=== PATIENT | female | born 1995 | race Caucasian/White ===

== ENCOUNTER → 2018-01-24 | Outpatient (CLI) | payer BC ==
[~2018-01-24] VITALS: Ht 160 cm; Wt 88.6 kg
[2018-01-24 18:17] VITALS: BP 140/91
[2018-01-24 18:48] LABS: ALBUMIN 4.1 g/dL (3.5-5.0); CALCIUM 8.8 mg/dL (8.4-10.2); POTASSIUM 4.4 mmol/L (3.6-5.0); TOTAL BILIRUBIN 0.6 mg/dL (0.2-1.3); TOTAL PROTEIN 7.4 g/dL (6.3-8.2)
[2018-01-24 19:17] LABS: HEMATOCRIT 45.7 % (37.0-47.0); HEMOGLOBIN 15.7 g/dL (12.5-16.0); MEAN PLATELET VOLUME 10.9 fl (7.4-10.4); RED BLOOD COUNT 5.38 M/mm3 (4.10-5.30); RED CELL DISTRIBUTION WIDTH 12.6 % (11.5-14.5); WHITE BLOOD COUNT 9.1 K/mm3 (4.8-10.8)
[2018-01-24 19:51] LABS: PH-URINE 6.5 (5.0 - 8.0); URINE APPEARANCE CLEAR; URINE BILIRUBIN NEGATIVE (NEGATIVE); URINE BLOOD TRACE (NEGATIVE); URINE COLOR YELLOW; URINE GLUCOSE NEGATIVE (NEGATIVE); URINE KETONE NEGATIVE (NEGATIVE); URINE LEUKOCYTE ESTERASE NEGATIVE (NEGATIVE); URINE NITRATE NEGATIVE (NEGATIVE); URINE PROTEIN(semi-quant) NEGATIVE (NEGATIVE); URINE UROBILINOGEN NORMAL (NORMAL); URINE WBC 0-1 /hpf (0-3)
== END ==
LOC: AMSURD 17:44
PROVIDERS: Family Medicine
DX: I10 Essential (primary) hypertension (principal)

== ENCOUNTER 2018-08-14 20:52 | Emergency (ER) | payer BC ==
[~2018-08-14] VITALS: Ht 162.6 cm; Wt 86.8 kg
[2018-08-14 22:16] VITALS: BP 148/94
== END 2018-08-14 22:16 | disposition home or self-care (01) ==
LOC: ED 20:52
DX: S93.402A Sprain of unspecified ligament of left ankle, initial encounter (principal); I10 Essential (primary) hypertension; Z90.89 Acquired absence of other organs; X50.1XXA Overexertion from prolonged static or awkward postures, initial encounter; Y92.830 Public park as the place of occurrence of the external cause

== ENCOUNTER → 2022-12-16 | Outpatient (CLI) | payer SELFPAY ==
[2022-12-16 09:39] LABS: HEMATOCRIT 47.4 % (37.0-47.0); HEMOGLOBIN 15.8 g/dL (12.5-16.0); MEAN PLATELET VOLUME 10.5 fl (7.4-10.4); RED BLOOD COUNT 5.46 M/mm3 (4.10-5.30); RED CELL DISTRIBUTION WIDTH 12.8 % (11.5-14.5); WHITE BLOOD COUNT 10.2 K/mm3 (4.8-10.8)
[2022-12-16 09:42] LABS: CALCIUM 9.2 mg/dL (8.3-10.5)
[2022-12-16 09:43] LABS: TOTAL PROTEIN 7.5 g/dL (6.4-8.3)
[2022-12-16 09:45] LABS: TOTAL BILIRUBIN 0.7 mg/dL (0.2-1.2)
== END ==
LOC: LAB 09:03
PROVIDERS: Family Medicine
DX: I10 Essential (primary) hypertension (principal); E66.9 Obesity, unspecified; N91.1 Secondary amenorrhea

== ENCOUNTER → 2023-12-27 | Outpatient (CLI) | payer BC ==
[~2023-12-27] MED LIST: METOPROLOL SUCC25 M1 PO; PREDNISONE20 M1 PO; SEPTRA DS 8001 TAB PO
[2023-12-27 16:26] LABS: HEMATOCRIT 45.9 % (37.0-47.0); HEMOGLOBIN 15.3 g/dL (12.5-16.0); MEAN PLATELET VOLUME 10.2 fl (7.4-10.4); RED BLOOD COUNT 5.26 M/mm3 (4.10-5.30); RED CELL DISTRIBUTION WIDTH 12.2 % (11.5-14.5)
[2023-12-27 16:33] LABS: ALBUMIN 3.7 g/dL (3.5-5.0)
[2023-12-27 16:36] LABS: TOTAL PROTEIN 6.7 g/dL (6.4-8.3)
[2023-12-27 16:38] LABS: TOTAL BILIRUBIN 0.3 mg/dL (0.2-1.2)
== END ==
LOC: LAB 16:15
PROVIDERS: Family Medicine
DX: Z13.1 Encounter for screening for diabetes mellitus (principal); I10 Essential (primary) hypertension

== ENCOUNTER → 2024-05-31 | Outpatient (CLI) | payer SELFPAY ==
[2024-05-31 09:08] LABS: CALCIUM 9.1 mg/dL (8.3-10.5)
== END ==
LOC: LAB 08:40
PROVIDERS: Family Medicine
DX: I10 Essential (primary) hypertension (principal)